=== PATIENT | male | born 1950 | race Caucasian/White ===

== ENCOUNTER 2017-06-11 09:49 | Day surgery (SDC) | payer OTHER ==
[2017-06-11] MEDS ORDERED: fentaNYL 100 MCG/2 ML VIAL IVP ONE ×2 (10:20→12:11)
[2017-06-11] MEDS ORDERED: MIDAZOLAM 2 MG/2 ML VIAL IVP ONE ×2 (10:20→12:11)
[2017-06-11] MEDS ORDERED: LIDOCAINE-PF 2% 10 ML AMP SUBQ ONE (10:20)
[2017-06-11] MEDS ORDERED: DEXAMETHASONE 4 MG/ML VIAL IVP ONE (10:20)
[2017-06-11] MEDS ORDERED: PROPOFOL 200 MG/20 ML VIAL IVP ONE (10:20)
[2017-06-11] MEDS ORDERED: ONDANSETRON 4 MG/2 ML VIAL IVP ONE (10:20)
[2017-06-11] MEDS ORDERED: LACTATED RINGERS 1,000 ML IV ONE (10:36)
[2017-06-11] MEDS ORDERED: KETOROLAC 15 MG/ML VIAL ONE (11:43)
[2017-06-11 13:26] VITALS: BP 141/99
[2017-06-11 13:57] LABS: HCT - HEMATOCRIT 43.6 % (42.0-52.0); HGB - HEMOGLOBIN 15.5 g/dL (14.0-18.0); MEAN CORPUSCULAR HEMOGLOBIN 32.9 pg (27.0-31.0); MEAN CORPUSCULAR HGB CONC 35.4 g/dL (32.0-36.0); MEAN PLATELET VOLUME 6.5 fL (7.4-11.4); RED BLOOD COUNT 4.69 10^6/uL (4.70-6.10); RED CELL DISTRIBUTION WIDTH 12.6 % (12.0-15.0); WHITE BLOOD COUNT 4.7 x10^3/uL (4.8-10.8)
[2017-06-11 14:09] LABS: ALBUMIN/GLOBULIN RATIO 1.5 (1.0-2.2); BILIRUBIN,TOTAL 1.2 mg/dL (0.2-1.0); CALCIUM 9.4 mg/dL (8.5-10.3); CREATININE 0.8 mg/dL (0.6-1.2); TOTAL PROTEIN 7.1 g/dL (6.7-8.2)
== END 2017-06-11 09:50 | disposition home or self-care (01) ==
LOC: SDS 09:49
PROVIDERS: ATTEND Surgery
PROC: 0DBE8ZX Excision of Large Intestine, Via Natural or Artificial Opening Endoscopic, Diagnostic (ICD-10-PCS; 2017-06-11)
PROC: 0DBE8ZX Excision of Large Intestine, Via Natural or Artificial Opening Endoscopic, Diagnostic (ICD-10-PCS; principal; 2017-06-11 11:15)
DX: Z12.11 Encounter for screening for malignant neoplasm of colon (principal); D12.2 Benign neoplasm of ascending colon; D12.3 Benign neoplasm of transverse colon; D12.5 Benign neoplasm of sigmoid colon; D12.0 Benign neoplasm of cecum; K57.90 Diverticulosis of intestine, part unspecified, without perforation or abscess without bleeding; K64.8 Other hemorrhoids; I10 Essential (primary) hypertension; Z85.46 Personal history of malignant neoplasm of prostate; Z87.891 Personal history of nicotine dependence
CPT/HCPCS: 36415; 45380; 45385; 80053; 82378; 85027; J7120; 88305

== ENCOUNTER 2017-06-16 15:15 | Inpatient (IN) | payer OTHER ==
[2017-07-09] MEDS ORDERED: ERTAPENEM 1 GM VIAL ONE (06:43)
[2017-07-09] MEDS ORDERED: LACTATED RINGERS 1,000 ML IV ONE (07:02)
[2017-07-09] MEDS ORDERED: HYDROmorphone 0.5 MG/0.5 ML SYRINGE IVP ONE (09:30)
[2017-07-09] MEDS ORDERED: LIDOCAINE-MPF 2% 5 ML VIAL IM ONE (09:30)
[2017-07-09] MEDS ORDERED: DEXAMETHASONE 4 MG/ML VIAL IVP ONE (09:30)
[2017-07-09] MEDS ORDERED: NEOSTIGMINE 1 MG/1 ML 10 ML MDV IVP ONE (09:30)
[2017-07-09] MEDS ORDERED: fentaNYL 100 MCG/2 ML VIAL IVP ONE (09:30)
[2017-07-09] MEDS ORDERED: PROPOFOL 200 MG/20 ML VIAL IVP ONE (09:30)
[2017-07-09] MEDS ORDERED: ROCURONIUM 50 MG/5 ML VIAL IVP ONE (09:30)
[2017-07-09] MEDS ORDERED: GLYCOPYRROLATE 1 MG/5 ML VIAL IVP ONE (09:30)
[2017-07-09] MEDS ORDERED: ONDANSETRON 4 MG/2 ML VIAL IVP ONE (09:30)
[2017-07-09] MEDS ORDERED: MIDAZOLAM 2 MG/2 ML VIAL IVP ONE (09:30)
[2017-07-09] MEDS ORDERED: BUPIVACAINE 0.25% PF 30 ML VIAL SUBQ ONE ×2 (09:51→13:00)
[2017-07-09] MEDS ORDERED: HYDROmorphone 0.5 MG/0.5 ML SYRINGE IVP PRN (13:42)
[2017-07-09] MEDS ORDERED: ONDANSETRON 4 MG/2 ML VIAL IVP PRN (13:43)
[2017-07-09] MEDS: FAMOTIDINE 20 MG/2 ML VIAL IVP SCH ×2 (14:24→21:43)
[2017-07-09] MEDS: ACETAMINOPHEN 1,000 MG/100 ML 100 ML IV SCH ×2 (14:24→21:42)
[2017-07-09] MEDS: D5NS W/20 MEQ KCL 1,000 ML IV SCH ×2 (14:24→22:18)
[2017-07-09] MEDS: SODIUM CHLORIDE FLUSH 0.9% 10 ML SYRINGE IVP SCH ×2 (14:25→22:18)
[2017-07-09] MEDS: HYDROmorphone 0.5 MG/0.5 ML SYRINGE IVP PRN (18:48)
[2017-07-10] MEDS: ACETAMINOPHEN 1,000 MG/100 ML 100 ML IV SCH ×4 (01:21→20:02)
[2017-07-10] MEDS: FAMOTIDINE 20 MG/2 ML VIAL IVP SCH ×4 (01:22→20:02)
[2017-07-10] MEDS: SODIUM CHLORIDE FLUSH 0.9% 10 ML SYRINGE IVP PRN (01:22)
[2017-07-10] MEDS: HYDROmorphone 0.5 MG/0.5 ML SYRINGE IVP PRN ×5 (04:41→20:02)
[2017-07-10] MEDS: SODIUM CHLORIDE FLUSH 0.9% 10 ML SYRINGE IVP SCH ×3 (05:48→20:02)
[2017-07-10 06:03] LABS: CALCIUM 8.2 mg/dL (8.5-10.3); CREATININE 0.7 mg/dL (0.6-1.2); POTASSIUM 3.9 mmol/L (3.5-5.0)
[2017-07-10 06:20] LABS: HGB - HEMOGLOBIN 12.8 g/dL (14.0-18.0); RED CELL DISTRIBUTION WIDTH 12.7 % (12.0-15.0)
[2017-07-10 06:32] LABS: BASOPHILS % (AUTO) 0.4 %; EOSINOPHILS % (AUTO) 0.1 %; HCT - HEMATOCRIT 36.9 % (42.0-52.0); LYMPHOCYTES # (AUTO) 0.8 10^3/uL (1.5-3.5); LYMPHOCYTES % (AUTO) 12.9 %; MEAN CORPUSCULAR HEMOGLOBIN 32.9 pg (27.0-31.0); MEAN CORPUSCULAR HGB CONC 34.5 g/dL (32.0-36.0); MEAN CORPUSCULAR VOLUME 95.3 fL (80.0-94.0); MEAN PLATELET VOLUME 7.2 fL (7.4-11.4); MONOCYTES # (AUTO) 0.9 10^3/uL (0.0-1.0); MONOCYTES % (AUTO) 13.3 %; NEUTROPHILS # (AUTO) 4.8 10^3/uL (1.5-6.6); NEUTROPHILS % (AUTO) 73.3 %; RED BLOOD COUNT 3.88 10^6/uL (4.70-6.10); UNCORRECTED WHITE BLOOD COUNT 6.5 x10^3/uL; WHITE BLOOD COUNT 6.5 x10^3/uL (4.8-10.8)
--- NOTE | 2017-07-10 06:57 | OPERATIVE REPORT ---
DATE OF SURGERY: 07/09/2017 00:00:00 PREOPERATIVE DIAGNOSES: 1. Transverse colon polyps. 2. Elevated liver function tests. POSTOPERATIVE DIAGNOSES: 1. Transverse colon polyps. 2. Elevated liver function tests. NAME OF PROCEDURE: 1. Laparoscopic extended right hemicolectomy. 2. Liver biopsy. 3. Mobilization of splenic flexure. SURGEON: Cristino Tanner MD ANESTHESIA: General. INDICATIONS FOR PROCEDURE: The patient is a 66-year-old male, who recently underwent a colonoscopy. He was found to have a large, at least 8 cm polyp in his mid transverse colon. This had been at a previously marked area with dye. The area was tattooed again, along with 2 polyps more distally along the transverse colon. He had wanted to only proceed with a transverse colectomy with right colon/left colon anastomosis if possible. He wanted to preserve as much as his colon as possible. I have stated that it would be best if he underwent an extended right hemicolectomy, as the area was diseased. We will try and proceed with his wishes, but that it may end up as further surgery, being a right extended hemicolectomy if the anatomy is not have favorable. FINDINGS AT PROCEDURE: The patient had a large transverse colon polyp. This extended from the middle colic artery proximally to the area of the hepatic flexure. Because of this, an extended right hemicolectomy was performed. The liver appeared to be normal-appearing. After completing the anastomosis, there did not appear to be any leak, with it being intact. DESCRIPTION OF PROCEDURE: After informed consent was obtained, the patient was taken to the operating room and placed in the supine position. General endotracheal anesthesia was administered, and the patient's abdomen was then prepped and draped in the usual sterile fashion. An infraumbilical incision was made in the skin using a scalpel. A 5 mm Optiview trocar was then inserted through this incision, through the fascia, and into the abdominal cavity under direct vision. The abdomen was then insufflated. Looking inside, no injuries were noted. A 5 mm port was then placed in the left upper quadrant and a left lateral incision. The 5 mm port at the umbilicus was then switched to a 12 mm port. On exploring the area, the tattooed area of the large polyp was then identified. This was from the middle colic, extending proximally. There were 2 other polyps that I had removed and had marked, and I saw those areas in the distal transverse colon. Next, I needed to look and see how much of the right colon would be left behind if I did do a limited transverse colon resection, leaving the right colon. The cecum and appendix were actually located in the right upper quadrant rather than the right lower quadrant. This caused the whole area to bunch up. I needed to mobilize the hepatic flexure and right colon to see how much colon I would have if I was to do limited transverse colon resection. First, the greater omentum was then divided off of the colon from the hepatic flexure to the splenic flexure. The splenic flexure was then mobilized in case I would proceed with a limited transverse colectomy. Next, the hepatic flexure was then divided along with the lateral peritoneal fold on the right side. This allowed me to stretch out the right colon. The polyp extended to near the hepatic flexure and because of this, I did not think it was feasible to anastomose the right colon to the left colon, as the distance would be too far. Therefore, a right extended hemicolectomy would be performed. I had originally started at the middle colic artery. Near its base, the peritoneum was then incised using the LigaSure cautery device. The middle colic artery was then isolated, clipped proximally and distally doubly, and then divided along with the middle colic vein. Dissection proceeded proximally, dividing the mesentery of the transverse colon and right colon. The ileocolic vessel was then identified, clipped proximally and distally with clips doubly, and then being divided. This allowed full mobilization of the transverse colon and right colon. The appendix attachments were then divided along with the distal ileal ligament. This allowed full mobilization to the right colon and transverse colon. The umbilical port was then removed, and the incision was then extended through the umbilicus to an area just above it using a scalpel. The fascia was then incised, and a small wound protector was then placed. The cecum had been grasped and brought out through this opening, along with the right colon and transverse colon. The terminal ileum was also brought out through the wound. An area was identified along the transverse colon distal to the middle colic artery ligation area and the polyp. An opening was then made in the mesentery at this position. Likewise, an opening was then made in the mesentery of the distal small bowel where the anastomosis would be performed. The bowel where the opening in the mesentery in the transverse colon and ileum was then brought together using a 3-0 Vicryl stay suture. An opening was then made in the lumen of each, the distal ileum and transverse colon. A FRANCIS-75 stapling device was then placed through each opening and engaged, stapling and creating a new anastomosis. The end was then stapled closed using a FRANCIS-75 stapling device. The anastomosis was checked, and there was no leakage being present. The anastomosis was then returned back to the abdominal cavity. The anterior abdominal fascial layer was then closed using a running #1 PDS suture. The abdomen was then insufflated. The right upper quadrant was thoroughly irrigated until the return fluid was clear. A small incision was then made in the right upper quadrant, and a Uche-Cut needle was inserted through this incision and into the liver, obtaining a biopsy. The needle was withdrawn. Hemostasis from the liver was then obtained using cautery. The ports were then removed, and no bleeding was noted at the port sites, with the abdomen then being desufflated. The umbilical incision site was closed using a running #4-0 Monocryl subcuticular stitch, as well as the 5 mm port sites. Dermabond was then applied to the incision sites and the Uche-Cut needle site. The patient was then awakened, extubated, and taken from the operating room in stable condition. ESTIMATED BLOOD LOSS: 150 mL. COMPLICATIONS: None. CONDITION OF PATIENT AT END OF PROCEDURE: Stable. SPECIMENS: 1. Right extended hemicolectomy. 2. Liver biopsy. DRAINS/PACKS: None. CLASSIFICATION OF WOUND: Clean/contaminated. JOB #: [id number] EXT JOB #:[id number] MTDD
[2017-07-10] MEDS: D5NS W/20 MEQ KCL 1,000 ML IV SCH ×3 (07:09→22:40)
--- NOTE | 2017-07-10 11:03 | PROVIDER PROGRESS NOTE ---
Subjective - General Admit Date: 07/09/17 - Review of Systems Wound/Incisions: positive: Healing well Cardiovascular: positive: No symptoms Gastrointestinal: negative: Nausea, Flatus Psychiatric: positive: No symptoms - Other Other Information/Narrative: pain well controlled on IV dilaudid. Has not ambulated yet. Objective - Patient Data Reviewed Vital Signs: Yes Vital Signs: Vital Signs x48h Temp Pulse Resp BP BP Pulse Ox 07/10/17 08:08 36.7 C 62 18 121/71 94 07/10/17 05:00 36.7 C 70 16 109/64 94 Weight: Weight 07/08/17 07/09/17 07/10/17 23:59 23:59 23:59 Weight (kg) 79 kg Intake & Output: Intake and Output Totals x24h 07/08/17 07/09/17 07/10/17 23:59 23:59 23:59 Intake Total 1200 1200.00 Output Total 830 705 Balance 370 495.00 - Lab Results Lab Results: 07/10/17 05:33 07/10/17 05:33 Other Lab Results: Lab Results x24hrs 07/10/17 07/10/17 Range/Units 05:33 05:33 WBC 6.5 (4.8-10.8) x10^3/uL RBC 3.88 L (4.70-6.10) 10^6/uL Hgb 12.8 L (14.0-18.0) g/dL Hct 36.9 L (42.0-52.0) % MCV 95.3 H (80.0-94.0) fL MCH 32.9 H (27.0-31.0) pg MCHC 34.5 (32.0-36.0) g/dL RDW 12.7 (12.0-15.0) % Plt Count 176 (130-450) 10^3/uL MPV 7.2 L (7.4-11.4) fL Neut # 4.8 (1.5-6.6) 10^3/uL Lymph # 0.8 L (1.5-3.5) 10^3/uL Paulding # 0.9 (0.0-1.0) 10^3/uL Eos # 0.0 (0.0-0.7) 10^3/uL Baso # 0.0 (0.0-0.1) 10^3/uL Absolute Nucleated RBC 0.00 x10^3/uL Nucleated RBC % 0.0 /100WBC Sodium 138 (135-145) mmol/L Potassium 3.9 (3.5-5.0) mmol/L Chloride 109 (101-111) mmol/L Carbon Dioxide 24 (21-32) mmol/L Anion Gap 5.0 L (6-13) BUN 6 (6-20) mg/dL Creatinine 0.7 (0.6-1.2) mg/dL Estimated GFR (MDRD) 113 (>89) Glucose 134 H (70-100) mg/dL Calcium 8.2 L (8.5-10.3) mg/dL - Current Medications Current Medications: Current Medications Generic Name Dose Route Start Last Admin Trade Name Freq PRN Reason Stop Dose Admin Famotidine 10 mg 07/09/17 14:00 07/10/17 09:44 Pepcid IVP 10 mg Q6H ROSE MARIE Administration Hydromorphone HCl 1 mg 07/09/17 13:41 07/10/17 08:21 Dilaudid Inj Syringe IVP 1 mg Q2H PRN Administration PAIN Acetaminophen 100 mls @ 400 mls/hr 07/09/17 14:00 07/10/17 10:16 Ofirmev IV Infused Q6H ROSE MARIE Infusion Potassium Chloride/Dextrose/Sod Cl 1,000 mls @ 50 mls/hr 07/10/17 10:27 07/10 10:32 IV 50 mls/hr .Q20H ROSE MARIE Administration Sodium Chloride 10 ml 07/09/17 14:00 07/10/17 05:48 Normal Saline Flush 0.9% IVP Not Given Q8HR ROSE MARIE Sodium Chloride 10 ml 07/09/17 13:38 07/10/17 01:22 Normal Saline Flush 0.9% IVP 10 ml PRN PRN Administration NEEDED PER PROVIDER ORDERS - Physical Exam Wound/Incisions: positive: Healing well, No drainage. negative: Erythema General Appearance: positive: No acute distress Respiratory: positive: No respiratory distress Cardiovascular: positive: Regular rate & rhythm Abdomen: positive: Non-tender, No distention Extremities: positive: No pedal edema Neurologic/Psychiatric: positive: Oriented x3 Impression/Plan - Problem List Problem List: s/p extended laparoscopic right hemicolectomy POD 1 - DC dietz - start clear liquids - encourage ambulatioin -decrease IV fluids - patient will be stable for DC once he is ambulating without assistance, tolerating a soft diet after bowel function has been re-established, and pain controlled with oral pain medications.
[2017-07-10] MEDS: oxyCODONE 5 MG TABLET PO PRN (20:02)
[2017-07-11] MEDS: ACETAMINOPHEN 1,000 MG/100 ML 100 ML IV SCH ×2 (01:32→08:25)
[2017-07-11] MEDS: SODIUM CHLORIDE FLUSH 0.9% 10 ML SYRINGE IVP PRN ×3 (01:33→08:28)
[2017-07-11] MEDS: HYDROmorphone 0.5 MG/0.5 ML SYRINGE IVP PRN ×2 (01:33→10:47)
[2017-07-11] MEDS: FAMOTIDINE 20 MG/2 ML VIAL IVP SCH ×2 (02:47→08:26)
[2017-07-11] MEDS: SODIUM CHLORIDE FLUSH 0.9% 10 ML SYRINGE IVP SCH (05:02)
[2017-07-11] MEDS: oxyCODONE 5 MG TABLET PO PRN ×2 (05:25→10:15)
[2017-07-11 05:45] LABS: BASOPHILS % (AUTO) 0.4 %; EOSINOPHILS % (AUTO) 0.7 %; HCT - HEMATOCRIT 36.5 % (42.0-52.0); HGB - HEMOGLOBIN 12.8 g/dL (14.0-18.0); LYMPHOCYTES # (AUTO) 0.8 10^3/uL (1.5-3.5); LYMPHOCYTES % (AUTO) 13.4 %; MEAN CORPUSCULAR HEMOGLOBIN 33.3 pg (27.0-31.0); MEAN CORPUSCULAR VOLUME 95.2 fL (80.0-94.0); MEAN PLATELET VOLUME 6.8 fL (7.4-11.4); MONOCYTES # (AUTO) 0.7 10^3/uL (0.0-1.0); MONOCYTES % (AUTO) 10.6 %; NEUTROPHILS # (AUTO) 4.7 10^3/uL (1.5-6.6); NEUTROPHILS % (AUTO) 74.9 %; RED BLOOD COUNT 3.84 10^6/uL (4.70-6.10); RED CELL DISTRIBUTION WIDTH 12.5 % (12.0-15.0); UNCORRECTED WHITE BLOOD COUNT 6.2 x10^3/uL; WHITE BLOOD COUNT 6.2 x10^3/uL (4.8-10.8)
[2017-07-11 05:47] LABS: CALCIUM 8.5 mg/dL (8.5-10.3); CREATININE 0.7 mg/dL (0.6-1.2); POTASSIUM 3.7 mmol/L (3.5-5.0)
[2017-07-11 07:28] VITALS: BP 151/86
--- NOTE | 2017-07-11 11:14 | Discharge Plan ---
Discharge Plan Disposition: 01 Home, Self Care Condition: Good Diet: Soft Activity Restrictions: no strenuous activity or heavy lifting Shower Restrictions: Yes (no tub bathing) Driving Restrictions: Yes (not while on narcotics) Weight Bearing: Full Weight Instruction Topics: Diet Soft Dc No Smoking: If you smoke, Please STOP! Call for help. Follow-up with: Cristino Tanner MD [Provider Admit Priv/Credential] - 1 Week
--- NOTE | 2017-07-12 04:00 | DISCHARGE SUMMARY ---
DATE OF ADMISSION: 07/09/2017 DATE OF DISCHARGE: 07/11/2017 REASON FOR ADMISSION: Elective right extended hemicolectomy. HOSPITAL COURSE: This is a 66-year-old gentleman who presented for an elective extended right hemicolectomy secondary to a large transverse colon polyp. He underwent the procedure without complications and was transferred to the floor postoperatively with a Norwood catheter in place and IV dilaudid for pain control. His Norwood catheter was removed on postoperative day 1 and he ambulated without assistance. He was started on a clear liquid diet and tolerated this well. He began passing flatus on hospital day #1. He was advanced to a soft diet on postoperative day #2. He tolerated this well without feeling nauseous or having any abdominal distention. His pain was very well controlled with oral pain medications and he was ambulating without assistance. The patient was stable for discharge on postoperative day #2. He was provided with extensive instructions on how to care for himself postoperatively. He was instructed to call his surgeon should he develop any increasing abdominal pain, persistently bloody stools beyond 2 bowel movement or a large amount of blood in his stool, feeling of weakness, dizziness, fevers or chills, drainage from the incision or increasing erythema around the incision. PHYSICAL EXAMINATION ON DISCHARGE: He was noted to have a small amount of blanching erythema surrounding his umbilical incision, but this was nontender. He was noted to be afebrile with a normal white blood cell count. The patient was instructed to monitor his incision and to call his surgeon should the erythema progress or should he develop increasing pain or drainage from the incision. The patient was provided a prescription for Percocet and for Colace. He was instructed to follow up with Dr. Tanner next week. JOB #: [id number] EXT JOB #:[id number] SONNY
== END 2017-07-11 11:25 | disposition home or self-care (01) | DRG 331 ==
LOC: MS2 07-09 06:58
PROVIDERS: ADMIT Surgery; ATTEND Surgery
PROC: 0DTF4ZZ Resection of Right Large Intestine, Percutaneous Endoscopic Approach (ICD-10-PCS; principal; 2017-07-09 08:30)
PROC: 0FB03ZX Excision of Liver, Percutaneous Approach, Diagnostic (ICD-10-PCS; 2017-07-09 08:30)
DX: K63.5 Polyp of colon (principal); R79.89 Other specified abnormal findings of blood chemistry; I10 Essential (primary) hypertension; K21.9 Gastro-esophageal reflux disease without esophagitis; Z87.891 Personal history of nicotine dependence
CPT/HCPCS: 36415; 80048; 85025; 86850; 86900; 86901; 88307; 88309; 88313